=== PATIENT | female | born 1995 | race Caucasian/White ===

== ENCOUNTER 2019-02-03 16:53 | Emergency (ER) | payer BC ==
[2019-02-03 17:07] VITALS: BP 101/53
[2019-02-03] MEDS ORDERED: Lidocaine 2% PF * 5 ML VIAL INJ ONE (17:20)
--- NOTE | 2019-02-03 17:27 | UC ---
Laceration HPI - HPI Summary HPI Summary: 23 year old female, active, who presents with laceration to outer left ankle after dropping a radha jar nearby. no difficulty with wound healing. Full strength of ankle, denies decreased sensation. Ambulatory without difficulty. no other injuries. no prior ankle injuries/ surgeries. - History Of Current Complaint Chief Complaint: UCLaceration Stated Complaint: ANKLE LACERATION Time Seen by Provider: 02/03/19 16:57 Hx Obtained From: Patient, Family/Surveillance Operator - friend Laceration Location: Ankle - left Mechanism Of Injury: Sharp Trauma Onset/Duration: Sudden Onset, Lasting Hours Severity: Mild Pain Intensity: 2 Pain Scale Used: 0-10 Numeric Aggravating Factors: Nothing - Allergies/Home Medications Allergies/Adverse Reactions: Allergies Allergy/AdvReac Type Severity Reaction Status Date / Time No Known Allergies Allergy Verified 02/03/19 17:07 Home Medications: Home Medications SUMAtriptan TAB* [Imitrex TAB*] 25 mg PO SEE INSTRUCTIONS 02/03/19 [History Confirmed 02/03/19] PMH/Surg Hx/FS Hx/Imm Hx Previously Healthy: Yes - Surgical History Surgical History: Yes Surgery Procedure, Year, and Place: rt leg repair - Family History Known Family History: Positive: Non-Contributory - Social History Alcohol Use: Rare Substance Use Type: None Smoking Status (MU): Never Smoked Tobacco Review of Systems All Other Systems Reviewed And Are Negative: Yes Skin: Positive: Other - laceration Musculoskeletal: Positive: Edema Is Patient Immunocompromised?: No Physical Exam Triage Information Reviewed: Yes Appearance: Well-Appearing, No Pain Distress, Well-Nourished Vital Signs: Initial Vital Signs Temp 98.5 F 02/03/19 17:04 Pulse 84 02/03/19 17:04 Resp 18 02/03/19 17:04 BP 101/53 02/03/19 17:04 Pulse Ox 98 02/03/19 17:04 Vital Signs Reviewed: Yes Eyes: Positive: Conjunctiva Clear Musculoskeletal Exam: Normal - left ankle Musculoskeletal: Positive: Strength Intact, ROM Intact, No Edema, Other: - no TTP over foot, laceration left lateral ankle approximately 2cm above lat mal. PT 2+. Tendon exposed, however intact, no laceration seen over tendon with movements, full strength. Neurological: Positive: Alert, Muscle Tone Normal, Other: - SITLT distal to wound Psychological Exam: Normal Skin: Positive: Other Laceration Repair - Laceration Repair 1 Procedure Summary: linear laceration lateral ankle ~ 2 cm above lat mal. Area irrigated, anes with 2/5 lidocaine, 5cc. Sutured single layer without difficulty, no complications. Dressing placed. 5 sutures placed Description: Linear Laceration Size After Repair: Length (cm) - 1.5, Width (mm) - 3, Depth (mm) - 3 Contamination/FB Removal: no FB Type Injection: Local Anesthesia Used: 2.0% Lido Cleansing Completed Via Routine Prep: Yes Irrigation With Pressure Irrigation Device: Yes Closure Material: Sutures Closure Method: Single Layer Suture Of: Skin Suture Type: Nylon Laceration Course/Dx - Course/Dx Course Of Treatment: Laceration, left ankle - - Sutures to be removed within 5-7 days. May follow up with primary care physician or may return for removal. - Keep area clean, dry. OK to shower in 24 hours, do not submerge wound, swim, soak area until sutures are removed. - Tylenol/ Motrin as needed for pain - Go to ER with redness, drainage, increased pain, decreased sensation - Tetanus up to date. - Elevate as much as possible, ice for pain. - Differential Dx - Laceration/Wound Differental Diagnoses: Cellulitis, Laceration, Puncture Wound - Diagnosis Provider Diagnosis: Laceration of ankle Discharge - Sign-Out/Discharge Documenting (check all that apply): Patient Departure All imaging exams completed and their final reports reviewed: No Studies - Discharge Plan Condition: Good Disposition: HOME Patient Education Materials: Laceration (ED), Care For Your Stitches (ED) Referrals: Effie Vigil MD [Primary Care Provider] - Additional Instructions: Laceration HPI - HPI Summary HPI Summary: 23 year old female, active, who presents with laceration to outer left ankle after dropping a radha jar nearby. no difficulty with wound healing. Full strength of ankle, denies decreased sensation. Ambulatory without difficulty. no other injuries. no prior ankle injuries/ surgeries. - History Of Current Complaint Chief Complaint: UCLaceration Stated Complaint: ANKLE LACERATION Time Seen by Provider: 02/03/19 16:57 Hx Obtained From: Patient, Family/Surveillance Operator - friend Laceration Location: Ankle - left Mechanism Of Injury: Sharp Trauma Onset/Duration: Sudden Onset, Lasting Hours Severity: Mild Pain Intensity: 2 Pain Scale Used: 0-10 Numeric Aggravating Factors: Nothing - Allergies/Home Medications Allergies/Adverse Reactions: Allergies Allergy/AdvReac Type Severity Reaction Status Date / Time No Known Allergies Allergy Verified 02/03/19 17:07 Home Medications: Home Medications SUMAtriptan TAB* [Imitrex TAB*] 25 mg PO SEE INSTRUCTIONS 02/03/19 [History Confirmed 02/03/19] PMH/Surg Hx/FS Hx/Imm Hx Previously Healthy: Yes - Surgical History Surgical History: Yes Surgery Procedure, Year, and Place: rt leg repair - Family History Known Family History: Positive: Non-Contributory - Social History Alcohol Use: Rare Substance Use Type: None Smoking Status (MU): Never Smoked Tobacco Review of Systems All Other Systems Reviewed And Are Negative: Yes Skin: Positive: Other - laceration Musculoskeletal: Positive: Edema Is Patient Immunocompromised?: No Physical Exam Triage Information Reviewed: Yes Appearance: Well-Appearing, No Pain Distress, Well-Nourished Vital Signs: Initial Vital Signs Temp 98.5 F 02/03/19 17:04 Pulse 84 02/03/19 17:04 Resp 18 02/03/19 17:04 BP 101/53 02/03/19 17:04 Pulse Ox 98 02/03/19 17:04 Vital Signs Reviewed: Yes Eyes: Positive: Conjunctiva Clear Musculoskeletal Exam: Normal - left ankle Musculoskeletal: Positive: Strength Intact, ROM Intact, No Edema, Other: - no TTP over foot, laceration left lateral ankle approximately 2cm above lat mal. PT 2+. Tendon exposed, however intact, no laceration seen over tendon with movements, full strength. Neurological: Positive: Alert, Muscle Tone Normal, Other: - SITLT distal to wound Psychological Exam: Normal Skin: Positive: Other Laceration Repair - Laceration Repair 1 Procedure Summary: linear laceration lateral ankle ~ 2 cm above lat mal. Area irrigated, anes with 2/5 lidocaine, 5cc. Sutured single layer without difficulty, no complications. Dressing placed. Description: Linear Contamination/FB Removal: no FB Type Injection: Local Anesthesia Used: 2.0% Lido Cleansing Completed Via Routine Prep: Yes Irrigation With Pressure Irrigation Device: Yes Closure Material: Sutures Closure Method: Single Layer Suture Of: Skin Suture Type: Nylon Laceration Course/Dx - Course/Dx Course Of Treatment: Laceration, left ankle - - Sutures to be removed within 5-7 days. May follow up with primary care physician or may return for removal. - Keep area clean, dry. OK to shower in 24 hours, do not submerge wound, swim, soak area until sutures are removed. - Tylenol/ Motrin as needed for pain - Go to ER with redness, drainage, increased pain, decreased sensation - Tetanus up to date. - Elevate as much as possible, ice for pain. - Differential Dx - Laceration/Wound Differental Diagnoses: Cellulitis, Laceration, Puncture Wound - Diagnosis Provider Diagnosis: Laceration of ankle Discharge - Sign-Out/Discharge Documenting (check all that apply): Patient Departure All imaging exams completed and their final reports reviewed: No Studies - Discharge Plan Condition: Good Disposition: HOME Patient Education Materials: Laceration (ED), Care For Your Stitches (ED) Referrals: Effie Vigil MD [Primary Care Provider] - - Billing Disposition and Condition Condition: GOOD Disposition: Home Laceration, left ankle - - Sutures to be removed within 5-7 days. May follow up with primary care physician or may return for removal. - Keep area clean, dry. OK to shower in 24 hours, do not submerge wound, swim, soak area until sutures are removed. - Tylenol/ Motrin as needed for pain - Go to ER with redness, drainage, increased pain, decreased sensation - Tetanus up to date. - Elevate as much as possible, ice for pain. - Billing Disposition and Condition Condition: GOOD Disposition: Home
== END 2019-02-03 18:32 | disposition home or self-care (01) ==
LOC: UCEAST 16:53
DX: S91.012A Laceration without foreign body, left ankle, initial encounter (principal); W25.XXXA Contact with sharp glass, initial encounter; Y92.9 Unspecified place or not applicable
CPT/HCPCS: 12001; 99211; G0463

== ENCOUNTER 2019-02-06 07:37 | Emergency (ER) | payer BC ==
[2019-02-06 07:57] VITALS: BP 107/76
--- NOTE | 2019-02-06 08:45 | UC ---
Skin Complaint HPI - HPI Summary HPI Summary: PATIENT HAS HAD INCREASING SCALP ITCHINESS OVER THE PAST WEEK. 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 SHE ALSO HAD STITCHES PLACED TO HER LEFT ANKLE SEVERAL DAYS AGO AND THEY ARE BOTHERING HER WHEN SHE MOVES AROUND. NO REDNESS OR DRAINAGE FROM THE WOUND. STATES IT IS HEALING WELL. - History of Current Complaint Chief Complaint: UCSkin Time Seen by Provider: 02/06/19 08:10 Stated Complaint: SCALP ITCHES Hx Obtained From: Patient Hx Last Menstrual Period: 01/20/19 Onset/Duration: Gradual Onset, Lasting Days, Still Present Timing: Constant Onset Severity: Mild Current Severity: Moderate Pain Intensity: 0 Pain Scale Used: 0-10 Numeric Character: Pruritus Aggravating Factor(s): Nothing Alleviating Factor(s): Nothing - Allergy/Home Medications Allergies/Adverse Reactions: Allergies Allergy/AdvReac Type Severity Reaction Status Date / Time No Known Allergies Allergy Verified 02/06/19 07:57 PMH/Surg Hx/FS Hx/Imm Hx Neurological History: Migraine - Surgical History Surgical History: Yes Surgery Procedure, Year, and Place: rt leg repair - Family History Known Family History: Positive: Non-Contributory - Social History Alcohol Use: Rare Substance Use Type: None Smoking Status (MU): Never Smoked Tobacco Review of Systems All Other Systems Reviewed And Are Negative: Yes Constitutional: Positive: Negative Skin: Positive: Other - ITCHY SCALP Respiratory: Positive: Negative Cardiovascular: Positive: Negative Gastrointestinal: Positive: Negative Physical Exam Triage Information Reviewed: Yes Appearance: Well-Appearing, No Pain Distress, Well-Nourished Vital Signs: Initial Vital Signs Temp 97.6 F 02/06/19 07:52 Pulse 70 02/06/19 07:52 Resp 18 02/06/19 07:52 BP 107/76 02/06/19 07:52 Pulse Ox 99 02/06/19 07:52 Vital Signs Reviewed: Yes Eyes: Positive: Conjunctiva Clear ENT: Positive: Hearing grossly normal Neck: Positive: Supple Respiratory: Positive: No respiratory distress, No accessory muscle use Cardiovascular: Positive: Pulses Normal Abdomen Description: Positive: Soft Musculoskeletal: Positive: No Edema Neurological: Positive: Alert Psychological: Positive: Age Appropriate Behavior Skin: Positive: Other - NITS AND LICE SEEN ATTACHED TO HAIR SHAFTS. NO RASH ON SKIN. Course/Dx - Course Course Of Treatment: COUNSELED ON TREATMENT FOR LICE. ADVISED TO USE OTC SHAMPOO, FIERRO AND SPRAYS. PATIENT IS VERY ANXIOUS AND OVERWHELMED BY THIS DIAGNOSIS. CONTACT INFORMATION FOR [facility] PROVIDED. PATIENT HAS SOME DISCOMFORT/ANXIETY CONCERNING HER ANKLE STITCHES. STATES THEY'RE HEALING WELL BUT ARE IN AN AWKWARD SPOT. NOTE FOR WORK PROVIDED. - Diagnoses Provider Diagnosis: Head lice Discharge - Sign-Out/Discharge Documenting (check all that apply): Patient Departure All imaging exams completed and their final reports reviewed: No Studies - Discharge Plan Condition: Stable Disposition: HOME Patient Education Materials: Pediculosis (ED) Forms: *Work Release Referrals: Jazmyn Browne NP [Primary Care Provider] - If Needed Additional Instructions: GET NIX OR RID OVER THE COUNTER. IT SHOULD COME WITH THE SHAMPOO, THE COMB AND THE SPRAY. USE DIRECTED. IF YOU PREFER YOU CAN CALL [facility] AND HAVE THEM TAKE CARE OF THIS ENTIRELY. [facility] HEAD LICE AND NIT REMOVAL Address: [place], [place] Hours: MON-SAT [id number]. CLOSED TUESDAY - Billing Disposition and Condition Condition: STABLE Disposition: Home
== END 2019-02-06 08:42 | disposition home or self-care (01) ==
LOC: UCEAST 07:37
DX: B85.0 Pediculosis due to Pediculus humanus capitis (principal)
CPT/HCPCS: 99211; G0463

== ENCOUNTER 2019-02-13 15:22 | Emergency (ER) | payer BC ==
--- NOTE | 2019-02-13 15:25 | UC ---
Skin Complaint HPI - HPI Summary HPI Summary: 23 yo female presents for suture removal from left ankle. Has had no issues. Denies fever, chills, drainage, pain, or redness. - History of Current Complaint Time Seen by Provider: 02/13/19 15:24 Stated Complaint: SUTURE REMOVAL Hx Obtained From: Patient Hx Last Menstrual Period: 01/20/19 Current Severity: None - Allergy/Home Medications Allergies/Adverse Reactions: Allergies Allergy/AdvReac Type Severity Reaction Status Date / Time No Known Allergies Allergy Verified 02/13/19 15:49 PMH/Surg Hx/FS Hx/Imm Hx Neurological History: Migraine - Surgical History Surgical History: Yes Surgery Procedure, Year, and Place: rt leg repair - Family History Known Family History: Positive: Non-Contributory - Social History Lives: With Family Alcohol Use: Rare Substance Use Type: None Smoking Status (MU): Never Smoked Tobacco Review of Systems All Other Systems Reviewed And Are Negative: Yes Constitutional: Positive: Negative Skin: Positive: Other - Left ankle sutures in place Respiratory: Positive: Negative Cardiovascular: Positive: Negative Physical Exam - Summary Physical Exam Summary: GENERAL: NAD. WDWN. No pain distress. SKIN: LEFT ankle: lateral malleolus with [address] No erythema, edema , drainage, or tenderness. CHEST: No accessory muscle use. Breathing comfortably and in no distress. CV: Pulses intact. Cap refill <2seconds MSK: FROM left ankle without pain NEURO: Alert. PSYCH: Age appropriate behavior. Triage Information Reviewed: Yes Vital Signs: Vital Signs (72 hours) 02/13/19 15:45 Temperature 98.4 F Pulse Rate 85 Respiratory 16 Rate Blood Pressure 109/55 (mmHg) O2 Sat by Pulse 97 Oximetry Vital Signs Reviewed: Yes Course/Dx - Course Course Of Treatment: 5 sutures removed without difficulty - Diagnoses Provider Diagnosis: Visit for suture removal Discharge - Sign-Out/Discharge Documenting (check all that apply): Patient Departure All imaging exams completed and their final reports reviewed: No Studies - Discharge Plan Condition: Stable Disposition: HOME Patient Education Materials: Stitches Removal (ED) Referrals: Jazmyn Browne NP [Primary Care Provider] - Additional Instructions: If you develop a fever, shortness of breath, chest pain, new or worsening symptoms - please call your PCP or go to the ED immediately. - Billing Disposition and Condition Condition: STABLE Disposition: Home
[2019-02-13 16:00] VITALS: BP 109/55
== END 2019-02-13 15:53 | disposition home or self-care (01) ==
LOC: UCEAST 15:22
DX: S91.012D Laceration without foreign body, left ankle, subsequent encounter (principal); X58.XXXD Exposure to other specified factors, subsequent encounter

== ENCOUNTER 2019-07-20 07:07 | Emergency (ER) | payer BC ==
--- OUTSIDE RECORDS SUMMARY | 2019-07-20 07:12 | XMS REPORT | Continuity of Care Document ---
:1995 External Reference #:[id number] Author Name Eryn Rosas MD (transmitted by agent of provider Yolande Espino ) Address [address] [place] [id number] Care Team Providers Name Role Phone Jazmyn Browne Care Team Information [employer] [phone] Problems Description No Active Problems Social History Type Date Description Comments Sex Unknown Cigarette Use Does Not Smoke Cigarettes ETOH Use Denies alcohol use Recreational Drug Use Never Used Drugs Tobacco Use Start: Unknown Patient has never smoked Smoking Status Reviewed: 06/21/19 Patient has never smoked Exercise Type/Frequency Exercises regularly Seat Belt/Car Seat Always uses seat belt Allergies, Adverse Reactions, Alerts Description No Known Drug Allergies Medications Active Medications SIG Qnty Indications Ordering Provider Date Topamax Unknown Sumatriptan Succinate 1 by mouth x1 with Unknown migraine may 25mg Tablets repeat if no response in 2 hours History Medications Baclofen 1 tablet in vagina 10tabs Linda Burger CNM 12/21/2018 - 5mg Tablets at hs 12/31/2018 Medications Administered in Office Medication SIG Qnty Indications Ordering Provider Date PT SCRN Tbco Id as Non User Eryn Rosas MD 06/05/2018 Injection Immunizations Description No Information Available Vital Signs Date Vital Result Comment 06/21/2019 3:18pm Height 58.5 inches 4'10.50" 0 Parity 0 06/05/2018 2:51pm BP Systolic 110 mmHg BP Diastolic 58 mmHg Height 58.5 inches 4'10.50" Weight 115.00 lb BMI (Body Mass Index) 23.6 kg/m2 Last Menstrual Period [id number] Parity 0 Results Description No Information Available Procedures Description No Information Available Medical Devices Description No Information Available Encounters Description No Information Available Assessments Description No Information Available Plan of Treatment No Information Available Functional Status Description No Information Available Mental Status Description No Information Available Referrals Description No Information Available
[2019-07-20 07:22] VITALS: BP 107/54
--- NOTE | 2019-07-20 07:28 | UC ---
Respiratory Complaint HPI - HPI Summary HPI Summary: 23 yo with respiratory symptoms x 6-7 days, initially with ear pain, subjective fever, and cough. Was off work on the and due to illness, improved, but in the past day has had loss of voice and increased cough. No fever. 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 - History of Current Complaint Chief Complaint: UCRespiratory Stated Complaint: FLU LIKE SYMPTOMS Time Seen by Provider: 07/20/19 07:15 Hx Obtained From: Patient Hx Last Menstrual Period: 07/01/19 ?: No Onset/Duration: Gradual Onset, Lasting Days Timing: Intermittent Episodes Severity Initially: Mild Severity Currently: Mild Pain Intensity: 5 Character: Cough: Productive Aggravating Factors: Exertion Alleviating Factors: Upright Position Associated Signs And Symptoms: Positive: URI, Nasal Congestion. Negative: Dyspnea, Fever, Wheezing, Dizziness - Risk Factors Pulmonary Embolism Risk Factors: Negative Cardiac Risk Factors: Negative Pseudomonas Risk Factors: Negative Tuberculosis Risk Factors: Negative - Allergies/Home Medications Allergies/Adverse Reactions: Allergies Allergy/AdvReac Type Severity Reaction Status Date / Time No Known Allergies Allergy Verified 07/20/19 07:21 Home Medications: Home Medications Ibuprofen [Advil] 800 mg PO ONCE PRN 07/20/19 [History Confirmed 07/20/19] Multivitamin [Multivitamins] 1 tab PO DAILY 07/20/19 [History Confirmed 07/20/19 ] [place]-3 Fatty Acids/Fish Oil [Fish Oil 1,000 mg Softgel] 1 tab PO DAILY [History Confirmed 07/20/19] PMH/Surg Hx/FS Hx/Imm Hx Previously Healthy: Yes - Surgical History Surgical History: Yes Surgery Procedure, Year, and Place: rt leg repair. wisdom teeth - Family History Known Family History: Positive: Hypertension - Social History Occupation: Employed Full-time Lives: With Family Alcohol Use: Rare Substance Use Type: None Smoking Status (MU): Never Smoked Tobacco Review of Systems All Other Systems Reviewed And Are Negative: Yes Constitutional: Positive: Fatigue Skin: Positive: Negative Eyes: Positive: Negative ENT: Positive: Sore Throat, Ear Ache Respiratory: Positive: Cough. Negative: Shortness Of Breath Cardiovascular: Negative: Palpitations, Chest Pain Gastrointestinal: Positive: Negative Genitourinary: Positive: Negative Motor: Positive: Negative Neurovascular: Positive: Negative Musculoskeletal: Positive: Negative Neurological: Positive: Negative Psychological: Positive: Negative Is Patient Immunocompromised?: No Physical Exam Triage Information Reviewed: Yes Appearance: Well-Appearing, No Pain Distress Vital Signs: Initial Vital Signs Temp 98.8 F 07/20/19 07:16 Pulse 88 07/20/19 07:16 Resp 18 07/20/19 07:16 BP 107/54 07/20/19 07:16 Pulse Ox 100 07/20/19 07:16 Eye Exam: Normal ENT: Positive: Pharyngeal erythema, TM dull - right serous otitis. Negative: Tonsillar swelling, Tonsillar exudate Neck: Positive: Supple, Nontender, No Lymphadenopathy Respiratory: Positive: Lungs clear, Normal breath sounds Cardiovascular: Positive: RRR, No Murmur Musculoskeletal Exam: Normal Neurological Exam: Normal Psychological Exam: Normal Skin Exam: Normal Diagnostics - Laboratory Lab Results: Rapid strep negative. Flu negative. Respiratory Course/Dx - Course Course Of Treatment: Symptomatic treatment of viral illness. Off work today. - Differential Dx/Diagnosis Differential Diagnosis/HQI/PQRI: Bronchitis, Influenza, Lower Resp Infection, Sinusitis, Other - URI Provider Diagnosis: URI, acute Discharge ED - Sign-Out/Discharge Documenting (check all that apply): Patient Departure All imaging exams completed and their final reports reviewed: No Studies - Discharge Plan Condition: Stable Disposition: HOME Patient Education Materials: Upper Respiratory Infection (ED) Forms: *Work Release Referrals: Jazmyn Browne NP [Primary Care Provider] - Additional Instructions: Continue symptomatic treatment of viral illness. Rest your voice and use warm water and salt gargles for relief of sore throat. Ensure increased fluids. Flonase spray 2 sprays to both nostrils once daily could help to relieve ear pressure. Use ibuprofen 600mg up to 3 times per day for sore throat or ear ache. - Billing Disposition and Condition Condition: STABLE Disposition: Home
[2019-07-20 07:45] LABS: Influenza A Molecular NEGATIVE (Negative); Influenza B Molecular NEGATIVE (Negative)
== END 2019-07-20 08:16 | disposition home or self-care (01) ==
LOC: UCEAST 07:07
DX: J06.9 Acute upper respiratory infection, unspecified (principal); H66.91 Otitis media, unspecified, right ear
CPT/HCPCS: 87651; 99211; G0463

== ENCOUNTER 2019-08-14 08:41 | Emergency (ER) | payer BC ==
[2019-08-14 08:55] VITALS: BP 106/73
--- NOTE | 2019-08-14 10:03 | UC ---
Throat Pain/Nasal Leobardo HPI - HPI Summary HPI Summary: PATIENT HAS HAD 4 DAYS OF SORE THROAT AND FLULIKE SYMPTOMS. 3 DAYS AGO WENT TO [facility] WHERE SHE WAS DIAGNOSED CLINICALLY WITH INFLUENZA AND PLACED ON TAMIFLU. PATIENT STATES THAT HER THROAT HAS BECOME MORE SORE SINCE THEN AND SHE IS CONCERNED ABOUT STREP. - History of Current Complaint Chief Complaint: UCGeneralIllness Stated Complaint: SORE THROAT Time Seen by Provider: 08/14/19 08:55 Hx Obtained From: Patient Hx Last Menstrual Period: 07/28/19 Onset/Duration: Gradual Onset, Lasting Days, Still Present Severity: Moderate Pain Intensity: 5 Pain Scale Used: 0-10 Numeric Cough: Nonproductive Associated Signs & Symptoms: Positive: Fever. Negative: Wheezing - Allergies/Home Medications Allergies/Adverse Reactions: Allergies Allergy/AdvReac Type Severity Reaction Status Date / Time No Known Allergies Allergy Verified 08/13/19 13:25 Home Medications: Home Medications Oseltamivir CAP* [Tamiflu CAP*] 1 cap PO BID 08/14/19 [History Confirmed ] PMH/Surg Hx/FS Hx/Imm Hx Neurological History: Migraine - Surgical History Surgical History: Yes Surgery Procedure, Year, and Place: rt leg repair. wisdom teeth. Tonsilectomy - Family History Known Family History: Positive: Hypertension, Non-Contributory - Social History Alcohol Use: Rare Substance Use Type: None Smoking Status (MU): Never Smoked Tobacco Review of Systems All Other Systems Reviewed And Are Negative: Yes Constitutional: Positive: Fever, Chills, Fatigue ENT: Positive: Sore Throat, Nasal Discharge Respiratory: Positive: Cough Cardiovascular: Positive: Negative Gastrointestinal: Positive: Negative Musculoskeletal: Positive: Myalgia Physical Exam Triage Information Reviewed: Yes Appearance: Well-Appearing, No Pain Distress, Well-Nourished Vital Signs: Initial Vital Signs Temp 97.8 F 08/14/19 08:48 Pulse 76 08/14/19 08:48 Resp 18 08/14/19 08:48 BP 106/73 08/14/19 08:48 Pulse Ox 99 08/14/19 08:48 Laboratory Tests 08/14/19 09:02 Group A Strep Rapid Negative Vital Signs Reviewed: Yes Eyes: Positive: Conjunctiva Clear ENT: Positive: Hearing grossly normal, Pharynx normal, TMs normal Neck: Positive: Supple, Tenderness @ - ANTERIOR CERVICAL LAD, Enlarged Nodes @ - ANTERIOR CERVICAL LAD Respiratory Exam: Normal Cardiovascular Exam: Normal Abdomen Description: Positive: Soft Musculoskeletal: Positive: No Edema Neurological: Positive: Alert Psychological: Positive: Age Appropriate Behavior Skin: Negative: Rashes Throat Pain/Nasal Course/Dx - Course Course Of Treatment: STREP NEGATIVE. SUSPECT INFECTIOUS MONONUCLEOSIS. CBC AND MONOSPOT DRAWN TODAY. MAGIC MOUTHWASH AND PREDNISONE TO HELP WITH SYMPTOMS. - Differential Dx/Diagnosis Provider Diagnosis: Acute pharyngitis Discharge ED - Sign-Out/Discharge Documenting (check all that apply): Patient Departure All imaging exams completed and their final reports reviewed: No Studies - Discharge Plan Condition: Stable Disposition: HOME Prescriptions: Magic Mouth Was-DAVINA/MAAL/LIDO* 5 - 10 ml SWISH SWAL QID PRN #150 ml PRN Reason: Sore Throat predniSONE 20 mg TAB [Deltasone 20 MG TAB*] 40 mg PO DAILY #10 tab Patient Education Materials: Pharyngitis (ED) Forms: *Work Release Referrals: Jazmyn Browne HYDRAULIC TESTER [Primary Care Provider] - If Needed Additional Instructions: STREP TEST NEGATIVE. I SUSPECT YOU MAY HAVE INFECTIOUS MONONUCLEOSIS. CONTINUE TAKING YOUR TAMIFLU PRESCRIBED TO COVER FOR FLU. NO INDICATION FOR ANTIBIOTICS AT PRESENT. REST, HYDRATE, OTC MEDS NEEDED. MAGIC MOUTHWASH WILL HELP WITH SORE THROAT. PREDNISONE WILL HELP WITH INFLAMMATION. SEEK FOLLOW-UP IF YOU'RE NOT IMPROVING EXPECTED OVER THE NEXT COUPLE OF WEEKS. BLOOD COUNT AND MONO TEST DRAWN TODAY. - Billing Disposition and Condition Condition: STABLE Disposition: Home
[2019-08-14 14:06] LABS: ABS Basophils 0.1 10^3/ul (0-0.2); ABS Eosinophils 0.2 10^3/ul (0-0.6); ABS Lymphocytes 1.6 10^3/ul (1.0-4.8); ABS Neutrophils 6.6 10^3/ul (1.5-7.7); Eosinophil % 2.4 %; Hematocrit 38 % (35-47); Hemoglobin 13.2 g/dL (12.0-16.0); Lymphocyte % 16.8 %; Mean Corpuscular HGB Conc 35 g/dL (31-36); Mean Corpuscular Hemoglobin 31 pg (27-31); Mean Corpuscular Volume 89 fL (80-97); Mean Platelet Volume 8.2 fL (7.4-10.4); Platelet Count 281 10^3/uL (150-450); Red Blood Count 4.31 10^6 /uL (3.70-4.87); Red Cell Distribution Width 13 % (10-15); White Blood Count 9.4 10^3/uL (3.5-10.8)
== END 2019-08-14 10:23 | disposition home or self-care (01) ==
LOC: UCEAST 08:41
DX: J02.9 Acute pharyngitis, unspecified (principal); R53.83 Other fatigue; M79.10 Myalgia, unspecified site; R09.89 Other specified symptoms and signs involving the circulatory and respiratory systems; Z79.899 Other long term (current) drug therapy
CPT/HCPCS: 36415; 85025; 86308; 87651; 99212; G0463

== ENCOUNTER 2019-08-19 08:28 | Emergency (ER) | payer BC ==
[2019-08-19 08:45] VITALS: BP 99/64
--- NOTE | 2019-08-19 09:25 | UC ---
Throat Pain/Nasal Leobardo HPI - HPI Summary HPI Summary: patient has been feeling sick for over a week, originally saw [facility] and given tamiflu for presumed (not tested) flu. achy and fatigue feeling resolved but had ST, was tested for strep -negative, came back and tested neg on monospot, EBV pending. today returns for ST -strep negative has been working and gong to gym, just worried about ST sexually active with same partner for 6 years and is not concerned about STD - History of Current Complaint Chief Complaint: UCGeneralIllness Stated Complaint: SORE THROAT Time Seen by Provider: 08/19/19 08:57 Hx Obtained From: Patient Hx Last Menstrual Period: 07/28/19 Onset/Duration: Gradual Onset Severity: Severe Pain Intensity: 9 Cough: None Associated Signs & Symptoms: Positive: Negative. Negative: Hoarseness, Sinus Discomfort, Nasal Discharge, Fever, Vomiting - Epiglottits Risk Factors Epiglottis Risk Factors: Negative - Allergies/Home Medications Allergies/Adverse Reactions: Allergies Allergy/AdvReac Type Severity Reaction Status Date / Time No Known Allergies Allergy Verified 08/19/19 08:46 PMH/Surg Hx/FS Hx/Imm Hx Previously Healthy: Yes Neurological History: Migraine - Surgical History Surgical History: Yes Surgery Procedure, Year, and Place: rt leg repair. wisdom teeth. Tonsilectomy - Family History Known Family History: Positive: Hypertension, Non-Contributory - Social History Occupation: Employed Full-time Alcohol Use: Rare Substance Use Type: None Smoking Status (MU): Never Smoked Tobacco Review of Systems All Other Systems Reviewed And Are Negative: Yes Constitutional: Positive: Negative Skin: Positive: Negative. Negative: Rash Eyes: Positive: Negative ENT: Positive: Sore Throat, Ear Ache - R side. Negative: Nasal Discharge, Sinus Congestion Respiratory: Positive: Negative. Negative: Cough Cardiovascular: Positive: Negative Gastrointestinal: Positive: Negative Neurological/Mental Status: Positive: Negative. Negative: Headache Psychological: Positive: Negative Is Patient Immunocompromised?: No Physical Exam Triage Information Reviewed: Yes Appearance: Well-Appearing, No Pain Distress, Well-Nourished Vital Signs: Initial Vital Signs Temp 97.8 F 08/19/19 08:43 Pulse 87 08/19/19 08:43 Resp 16 08/19/19 08:43 BP 99/64 08/19/19 08:43 Pulse Ox 100 08/19/19 08:43 Vital Signs Reviewed: Yes Eye Exam: Normal Eyes: Positive: Conjunctiva Clear ENT Exam: Normal ENT: Positive: Pharynx normal, TMs normal. Negative: Pharyngeal erythema, Nasal congestion Neck exam: Normal Neck: Positive: Supple, Nontender Respiratory Exam: Normal Respiratory: Positive: Lungs clear Cardiovascular Exam: Normal Cardiovascular: Positive: RRR Neurological Exam: Normal Psychological Exam: Normal Skin Exam: Normal Skin: Negative: Rashes Throat Pain/Nasal Course/Dx - Differential Dx/Diagnosis Differential Diagnosis/HQI/PQRI: Influenza, Mononucleosis, Pharyngitis, Tonsillitis Provider Diagnosis: Sore throat Discharge ED - Sign-Out/Discharge Documenting (check all that apply): Patient Departure All imaging exams completed and their final reports reviewed: No Studies - Discharge Plan Condition: Stable Disposition: HOME Patient Education Materials: Pharyngitis (ED) Referrals: Jazmyn Browne ASSISTANT GM OF CONTENT & DELIVERY [Primary Care Provider] - 2 Days (if no better) Additional Instructions: drink plenty of fluid and rest Tylenol or ibuprofen for pain and fever follow-up with results EBV blood work - Billing Disposition and Condition Condition: STABLE Disposition: Home
== END 2019-08-19 09:41 | disposition home or self-care (01) ==
LOC: UCEAST 08:28
DX: J02.9 Acute pharyngitis, unspecified (principal); H92.01 Otalgia, right ear
CPT/HCPCS: 87651; 99211; G0463

== ENCOUNTER 2022-11-11 17:55 | Inpatient (IN) ==
[2022-11-11] MEDS ORDERED: Promethazine INJ(RESTRICTED) 25 MG/ML 1 ml VIAL IV PRN (19:37)
[2022-11-11] MEDS ORDERED: Lactated Ringers 1000 ml BAG 1,000 ML IV ONE (19:37)
[2022-11-11] MEDS ORDERED: Dinoprostone 10 MG VAG.SUPP VAGINAL ONE (19:37)
[2022-11-11] MEDS ORDERED: Buffered Lidocaine 1% SYRIN 1 ml INTRADERM ONE (19:37)
[2022-11-11] MEDS ORDERED: Lactated Ringers 1000 ml BAG 1,000 ML IV SCH (20:00)
[2022-11-11 23:09] LABS: Urine Benzodiazepine Screen None Detected (None Detect); Urine Cannabinoids Screen None Detected (None Detect); Urine Opiates Screen None Detected (None Detect)
[2022-11-12 15:27] LABS: ABS Basophils 0.1 10^3/uL (0.0-0.1); ABS Eosinophils 0.1 10^3/uL (0.0-0.5); ABS Lymphocytes 1.8 10^3/uL (1.0-4.8); ABS Monocytes 1.1 10^3/uL (0.0-0.9); ABS Neutrophils 10.9 10^3/uL (1.5-7.6); Eosinophil % 0.6 %; Hematocrit 36.2 % (35-45); Hemoglobin 12.5 g/dL (11.5-14.3); Lymphocyte % 12.9 %; Mean Corpuscular Hemoglobin 30.2 pg (27-33); Mean Corpuscular Hgb Conc 34.5 g/dL (31-36); Mean Corpuscular Volume 87.5 fL (80-97); Mean Platelet Volume 8.1 fL (7.5-11.2); Platelet Count 191 10^3/uL (150-450); Red Blood Count 4.13 10^6/uL (3.63-4.92); Red Cell Distribution Width 13.1 % (12-17); White Blood Count 13.9 10^3/uL (3.8-11.8)
[2022-11-12] MEDS: Oxytocin in LR 20,000 MILLI.UNIT/1,000 ML BAG IV SCH (15:54)
[2022-11-12] MEDS ORDERED: OBEPIDURAL (200 ML) 200 ML EPIDURAL ONE (22:25)
[2022-11-12] MEDS ORDERED: Lidocaine 1% w EPI 1:200,000 SDV 30 ML VIAL ONE ×2 (22:25→22:27)
[2022-11-12] MEDS ORDERED: Phenylephrine 40 mcg/mL 10mL (400mcg) SYRINGE ONE (23:07)
[2022-11-12] MEDS ORDERED: Lactated Ringers 1000 ml BAG 1,000 ML IV ONE (23:34)
[2022-11-12] MEDS ORDERED: Sodium Citrate/Citric Acid LIQ 15 ML UDC PO PRN (23:34)
[2022-11-12] MEDS ORDERED: Phenylephrine 40 mcg/mL 10mL (400mcg) SYRINGE IV PUSH PRN ×2 (23:34)
[2022-11-12] MEDS ORDERED: Lactated Ringers 1000 ml BAG 1,000 ML IV SCH (23:45)
[2022-11-12] MEDS ORDERED: OBEPIDURAL (200 ML) 200 ML EPIDURAL SCH (23:45)
[2022-11-13] MEDS: Oxytocin in LR 20,000 MILLI.UNIT/1,000 ML BAG IV SCH (11:01)
[2022-11-13] MEDS ORDERED: Calcium Carb (TUMS) 500 mg CHEW TAB PO ONE (11:18)
[2022-11-13] MEDS ORDERED: Oxytocin in LR 20,000 MILLI.UNIT/1,000 ML BAG IV SCH ×2 (12:15→17:00)
[2022-11-13] MEDS ORDERED: ceFOXitin 2 GM IVPREMIX 2 GM/50 ML BAG IVPB ONE (15:08)
[2022-11-13] MEDS ORDERED: Lidocaine 2% w/ EPI 1:200,000 MPF 20 ML SDV VIAL ONE (15:11)
[2022-11-13] MEDS ORDERED: Lidocaine 2% PF 10 ML AMP (OR) ONE (15:12)
[2022-11-13] MEDS ORDERED: Morphine PF AMP (0.5MG/ML) 5 MG/10 ML AMP ONE (15:52)
[2022-11-13] MEDS ORDERED: Tranexamic Acid 1,000 MG in NS 0.9% 50 ML IV ONE (16:48)
[2022-11-13] MEDS ORDERED: Witch Hazel PAD JAR TOPICAL PRN (16:48)
[2022-11-13] MEDS ORDERED: Glycerin ADULT 2.4 gm SUPP PR PRN (16:48)
[2022-11-13] MEDS ORDERED: Dibucaine 1% OINT 28.35 GM TUBE PR PRN (16:48)
[2022-11-13] MEDS ORDERED: Prochlorperazine 5 mg/ml 2 ml VIAL (10 mg) IV PRN (16:48)
[2022-11-13] MEDS ORDERED: Lactated Ringers 1000 ml BAG 1,000 ML IV SCH (17:00)
[2022-11-13] MEDS ORDERED: Ampicillin ADVAN 2 GM in NS 0.9% 100 ML 100 ML IVPB ONE (19:00)
[2022-11-13] MEDS ORDERED: Gentamicin ADULT per pharmacy 1 NOTE MISC FOLLOW UP PRN (19:33)
[2022-11-13 19:59] LABS: Urine Appearance Clear; Urine Bilirubin Negative (Negative); Urine Blood 3+ (Negative); Urine Color Colorless; Urine Glucose Negative (Negative); Urine Ketones Trace (Negative); Urine Nitrite Negative (Negative); Urine Protein Negative (Negative); Urine Specific Gravity 1.001 (1.002-1.030); Urine Urobilinogen Negative (Negative)
[2022-11-13 20:13] LABS: Urine Bacteria Absent (Absent); Urine Red Blood Cell 1+(3-5/hpf) (Absent); Urine White Blood Cell Absent (Absent)
[2022-11-13] MEDS: GENTAMICIN ADULT IVPB SCH (20:19)
[2022-11-13] MEDS: NS 0.9% IVPB SCH (20:19)
[2022-11-13] MEDS ORDERED: Ondansetron 4 mg VIAL 2 MG/ML 2 ml VIAL IV PRN (22:16)
[2022-11-13] MEDS ORDERED: Naloxone 0.4 mg VIAL 0.4 mg/ml 1 ml VIAL IV PRN ×2 (22:16)
[2022-11-14] MEDS: Ampicillin ADVAN 2 GM in NS 0.9% 100 ML 100 ML IVPB SCH ×4 (00:59→20:26)
[2022-11-14 08:18] LABS: Hematocrit 24.5 % (35-45); Hemoglobin 8.6 g/dL (11.5-14.3); Mean Corpuscular Hemoglobin 30.9 pg (27-33); Mean Corpuscular Hgb Conc 34.8 g/dL (31-36); Mean Corpuscular Volume 88.6 fL (80-97); Mean Platelet Volume 7.7 fL (7.5-11.2); Platelet Count 166 10^3/uL (150-450); Red Blood Count 2.77 10^6/uL (3.63-4.92); Red Cell Distribution Width 13.3 % (12-17); White Blood Count 18.6 10^3/uL (3.8-11.8)
[2022-11-14 08:49] LABS: ABS Eosinophils 0.2 10^3/uL (0.0-0.5); ABS Lymphocytes 2.6 10^3/uL (1.0-4.8); ABS Monocytes 1.8 10^3/uL (0.0-0.9); Lymphocyte % 13.8 %
[2022-11-14 21:03] LABS: Gentamicin Trough < 0.4 mcg/mL (0-2.0); eGFR CKD-EPI 102.2 (>60)
[2022-11-14] MEDS: NS 0.9% IVPB SCH (22:35)
[2022-11-14] MEDS: GENTAMICIN ADULT IVPB SCH (22:35)
[2022-11-15] MEDS: Ampicillin ADVAN 2 GM in NS 0.9% 100 ML 100 ML IVPB SCH ×2 (02:38→07:08)
[2022-11-16 08:29] VITALS: BP 101/57
== END 2022-11-16 17:42 | disposition home or self-care (01) | DRG 540 ==
LOC: MCHOBOUT 17:55 → MCHOB 18:43
PROVIDERS: ADMIT Advanced Practice Midwife; ATTEND Advanced Practice Midwife